=== PATIENT | male | born 1940 | race Caucasian/White ===

== ENCOUNTER 2019-12-28 13:21 | Outpatient (CLI) | payer MEDICARE, OTHER | END 2019-12-28 13:22 | disposition home or self-care (01) | LOC: COV 13:21 | PROVIDERS: ATTEND Family Medicine | DX: R50.9 Fever, unspecified (principal); R05 Cough; M79.10 Myalgia, unspecified site; J02.9 Acute pharyngitis, unspecified; R09.81 Nasal congestion; Z20.828 Contact with and (suspected) exposure to other viral communicable diseases ==